=== PATIENT | male | born 1960 | race Caucasian/White ===

== ENCOUNTER 2020-05-11 13:33 | Inpatient (IN) | payer SELFPAY ==
[~2020-05-11] VITALS: Ht 30.5 cm; Wt 145.0 kg
[2020-05-11] VITALS (27 sets, daily range): BP systolic 61–179; BP diastolic 36–114
[~2020-05-11 13:33] MED LIST: NO
--- NOTE | 2020-05-11 13:33 | NUR ---
PT ARRIVES VIA EMS WITH EXTREME WEAKNESS AND STATES NAUSEA AND FEVER X4 DAYS
[2020-05-11 14:11] LABS: HEMATOCRIT 41.8 % (39.0-50.0); IMMATURE GRANULOCYTES 0.6 % (0.0-5.0); MEAN CORPUSCULAR HGB 29.4 pG CALC (26.0-32.0); MEAN CORPUSCULAR HGB CONC 35.9 g/dL CAL (32.0-36.0); NEUT# 3.6 thou/uL (1.82-7.42); RED BLOOD COUNT 5.1 mill/uL (4.70-6.10); RED CELL DISTRI WIDTH 11.3 % (11.5-15.5)
--- NOTE | 2020-05-11 14:24 | NUR ---
PT PRESENTS WITH N/V AND PROGRESSIVE WEAKNESS. HE STATES THE WEAKNESS HAS BEEN WORSE THE LAST FEW DAYS. PT DENIES ANY OTHER S/S. PT HAS LABORED BREATHING, DENIES SOB OR CHEST PAIN. DENIES DIARREA 101.5 F BG 305
[2020-05-11 14:37] LABS: ALBUMIN 3.8 g/dL (3.2-5.0); ALKALINE PHOSPHATASE 109 u/l (38-126); ANION GAP 17 (6-22 (CALC)); BILIRUBIN, TOTAL 0.9 mg/dL (0.0-1.4); BUN 11 mg/dL (9-20); BUN/CREATININE RATIO 23 (12-20 (CALC)); CARBON DIOXIDE 25 mmol/l (22-30); CHLORIDE 80 mmol/l (95-108); CREATININE 0.5 mg/dL (0.7-1.3); GFR > 60 ML/MIN (>=60 (CALC)); GFR FOR AFR.AMER. > 60 ML/MIN (>=60 (CALC)); POTASSIUM 3.2 mmol/l (3.5-5.1); SGOT/AST 131 u/l (17-59); TOTAL PROTEIN 7.2 g/dL (6.3-8.2)
[2020-05-11 14:43] LABS: SODIUM 119 mmol/l (137-146)
[2020-05-11 14:49] LABS: MYOGLOBIN 27 ng/mL (0 - 121)
[2020-05-11 15:05] LABS: URINE BLOOD DIPSTICK MODERATE (NEGATIVE); URINE COLOR YELLOW; URINE GLUCOSE - DIPSTICK >=1000 mg/dL (NEGATIVE); URINE KETONE >=80 mg/dL (NEGATIVE); URINE LEUK ESTERASE NEGATIVE (NEGATIVE); URINE NITRITE - DIPSTICK NEGATIVE (Negative); URINE PROTEIN - DIPSTICK 100 mg/dL (NEG-TRACE); URINE SPECIFIC GRAVITY 1.025; URINE UROBILINOGEN - DIPSTICK 0.2 E.U./dL (0.2)
[2020-05-11 15:25] LABS: URINE BILIRUBIN - DIPSTICK NEGATIVE (NEGATIVE)
--- NOTE | 2020-05-11 15:30 | NUR ---
ANTIBIOTIC CONTINUES TO FLOW INTO PATNENT IV. PT TOLERATING WELL. HE IS RESTING ON STRETCHER WITH CALL LIGHT WITHIN REACH. DENIES ANY NEEDS. ONLY ASKED FOR MORE WATER, APPROVED. RECHECK TEMP 99.8 F
[2020-05-11 15:32] LABS: URINE WBC 0-2 WBC/hpf (0-5)
--- NOTE | 2020-05-11 16:05 | NUR ---
GAVE REPORT TO ZEV, NO ORDERS OF YET AND MD ASKED TO ALLOW CTA OF CHEST TO BE DONE FIRST BEFORE ADMITTING TO ICU
--- NOTE | 2020-05-11 17:00 | NUR ---
TRANSPORTED PT TO ICU ON STRETCHER STABLE AND IN NO DISTRESS. Admission Note Report Given to: ZEV Transported by: Wheelchair X Stretcher Transported with: X Nurse Transporter X Patent IV O2 X Flue Dust Laborer Location: X ICU [facility]2
--- NOTE | 2020-05-11 17:00 | NUR ---
PT TO ICU BED 4 VIA ER STRETCHER ACCOMPANIED BY ER NURSE. PT UNABLE TO TRANSFER SELF FROM STRETCHER. PT UNABLE TO GET OFF OF STRETCHER. PT TRANSFERRED TO BED MAX ASSIST. ADMISSION ASSESSMENT COMPLETED AT THIS TIME. IV PATENT X1. ORIENTED TO ROOM AND UNIT. PT UNABLE TO URINATE AT THIS TIME. CALL LIGHT IN REACH. WILL CONTINUE TO MONITOR.
--- NOTE | 2020-05-11 17:30 | NUR ---
WARREN PLACED AFTER VERBAL CONSENT OBTAINED.
--- NOTE | 2020-05-11 17:52 | NUR ---
DR MCPHERSON NOTIFIED OF ASSESSMENT AND FINDINGS. NEW ORDERS RECEIVED.
--- NOTE | 2020-05-11 18:00 | NUR ---
LAB AT BEDSIDE AT THIS TIME.
[2020-05-11 19:22] LABS: ACT PARTIAL THROMBO TIME 24.4 SECONDS (20.0-32.5); INTERNATIONAL NORMALIZED RATIO 1.2 RATIO (0.7-1.3); PROTHROMBIN TIME 11.6 SECONDS (9.0-12.5)
--- NOTE | 2020-05-11 19:30 | NUR ---
PATIENT LETHARGIC BUT AROUSABLE TO NAME. QUICKLY DRIFTS OFF WITHOUT STIMUALTION. (PATIENT WAS MEDICATED AT 1839 BY PREVIOUS SHIFT WITH ATIVAN IVP FOR RESTLESSNESS). O2 SAT 94% ON RA, BREATH SOUNDS CLEAR, DIMINISHED. ABD OBESE, SLT FIRM WITH ACTIVE BOWEL SOUNDS HEARD. WARREN DRAINS KRYSTIAN URINE. NO PERIPHERAL EDEMA, WEAKLY PALPABLE PERIPHERAL PULSES. OPEN AREA TO BALL OF LEFT FOOT AND TO RIGHT GREAT TOE. PHOTO DOCUMENTATION COMPLETED BY PREVIOUS SHIFT. IV IN RAC WITH NS AT 125 ML/HR, SITE BENIGN. MEDICAL TRANSCRIPTION RADIOLOGY SHOWS ST. CALL CARROLL IN REACH.
[2020-05-11 19:59] LABS: TSH, 3RD GENERATION 1.45 uIU/mL (0.47 - 4.68)
--- NOTE | 2020-05-11 20:45 | NUR ---
PATIENT NOTED TO HAVE AGONAL RESPIRATIONS. STAT PAGE TO RT. ACCU CHECK [id number].
--- NOTE | 2020-05-11 20:48 | NUR ---
ARTISTS' BOOKING REPRESENTATIVE CALLED FOR PATIENT D/T DETERIORATION OF RESP STATUS. SEE ARTISTS' BOOKING REPRESENTATIVE RECORD FOR FURTHER INFORMATION.
--- NOTE | 2020-05-11 21:00 | NUR ---
SECOND IV SITE ESTABLISHED IN [facility] BY Miles HEADLEY/LESLY.
--- NOTE | 2020-05-11 21:15 | NUR ---
#16 FR OG PLACED WITHOUT DIFFICULTY, TO LIS.
--- NOTE | 2020-05-11 21:30 | NUR ---
CALL DR MCPHERSON TO REPORT PATIENT INTUBATED AND ON VENTILATOR. NEW ORDERS RECEIVED.
--- NOTE | 2020-05-11 21:35 | NUR ---
SPOKE WITH PATIENT BRIA REGARDING CHANGE IN PATIENT CONDITION, INTUBATION AND PLACED ON VENTILATOR.
--- NOTE | 2020-05-11 22:10 | NUR ---
NS FLUID BOLUS GOING ORDERED. LEVOPHED GTT STARTED PER PROTOCOL. FOR CONTINUED TO HYPOTENSION. PROPOFOL GTT STARTED PER PROTOCOL.
--- NOTE | 2020-05-11 22:30 | NUR ---
SUX ORALLY FOR LARGE AMOUNTS THICK WHITE SECRETIONS.
--- NOTE | 2020-05-11 23:00 | NUR ---
CONTINUING WITH TITRATION OF LEVOPHED FOR BP. MONITOR REMAINS ST. VENT SETTINGS PER RT.
[2020-05-12 00:10] VITALS: BP 70/37
[2020-05-12 00:15] VITALS: BP 74/35
[2020-05-12 00:25] VITALS: BP 68/33
--- NOTE | 2020-05-12 00:30 | NUR ---
CALL TO DR MCPHERSON TO REPORT BP NOT RESPONDING TO LEVOPHED GTT. NEW ORDERS RECEIVED.
[2020-05-12 00:40] VITALS: BP 63/33
[2020-05-12 00:55] VITALS: BP 51/30
[2020-05-12 01:10] VITALS: BP 41/27
--- NOTE | 2020-05-12 01:15 | NUR ---
PATIENT TRACEY DOWN TO ASYSTOLE. CODE BLUE CALLED. SEE CODE BLUE RECORD FOR FURTHER INFORMATION.
--- NOTE | 2020-05-12 01:36 | NUR ---
CODE BLUE CALLED-PATIENT . NO PALPABLE PULSE, BP, NO REP EFFORT.
--- NOTE | 2020-05-12 01:40 | NUR ---
CALLED DR MCPHERSON TO INFORM OF PATIENT .
--- NOTE | 2020-05-12 01:45 | NUR ---
CALL TO PATIENT SPOUSE BRIA TO INFORM OF CHANGE IN PATIENT CONDITION. SHE IS COMING UP TO HOSPITAL.
--- NOTE | 2020-05-12 01:50 | NUR ---
CALL TO [employer] TO REPORT .
--- NOTE | 2020-05-12 02:20 | NUR ---
PATIENT DECLINED FOR ORGAN, TISSUE OR EYE DONATION.
--- NOTE | 2020-05-12 04:00 | NUR ---
PATIENT ARRIVED SHE DID NOT WISH TO VIEW BODY. SPOUSE STAYED IN WAITING ROOM. EMOTIONAL SUPPORT AND REASSURANCE PROVIDED. DISCUSSED FINAL ARRANGEMENT PROCESS.
--- NOTE | 2020-05-12 04:15 | NUR ---
NELSON FLAHERTY ([phone]) CREMATORY PHONED PER SPOUSE REQUEST.
--- NOTE | 2020-05-12 06:00 | NUR ---
MANAGER INSPECTION HERE-BODY RELEASED.
== END 2020-05-12 01:36 | disposition expired | DRG 208 ==
LOC: ED 13:33 → ED-I 15:27 → ED 15:35 → ICU 15:36
PROVIDERS: Emergency Medicine; ADMIT Internal Medicine; ATTEND Internal Medicine
PROC: 0BH17EZ Insertion of Endotracheal Airway into Trachea, Via Natural or Artificial Opening (ICD-10-PCS; principal; 2020-05-11)
PROC: 5A1935Z Respiratory Ventilation, Less than 24 Consecutive Hours (ICD-10-PCS; 2020-05-11)
PROC: 5A12012 Performance of Cardiac Output, Single, Manual (ICD-10-PCS; 2020-05-12)
DX: J18.9 Pneumonia, unspecified organism (principal); J96.90 Respiratory failure, unspecified, unspecified whether with hypoxia or hypercapnia; E87.1 Hypo-osmolality and hyponatremia; E11.9 Type 2 diabetes mellitus without complications; I10 Essential (primary) hypertension; Z20.828 Contact with and (suspected) exposure to other viral communicable diseases
CPT/HCPCS: J0282; J1650; J1956; J2060; Q9967